=== PATIENT | male | born 1975 | race Caucasian/White ===

== ENCOUNTER 2021-09-03 19:00 | Emergency (ER) | payer BC, OTHER ==
[~2021-09-03] VITALS: Ht 172.7 cm; Wt 81.6 kg
[2021-09-03] MEDS ORDERED: LIDOCAINE HCL 2% 20 ML VIAL IJ ONE (19:30)
--- NOTE | 2021-09-03 20:02 | NUR ---
Patient discharged to home in stable condition. Written and verbal after care instructions given. Patient verbalizes understanding of instructions. Stressed follow up or return to ER for worsening s/s.
[2021-09-03 20:03] VITALS: BP 130/97
== END 2021-09-03 20:03 | disposition home or self-care (01) ==
LOC: ER 19:04
DX: S61.211A Laceration without foreign body of left index finger without damage to nail, initial encounter (principal); I10 Essential (primary) hypertension; I48.91 Unspecified atrial fibrillation; W26.0XXA Contact with knife, initial encounter; Y93.89 Activity, other specified; Y92.89 Other specified places as the place of occurrence of the external cause; Y99.8 Other external cause status
CPT/HCPCS: A4217; A4663

== ENCOUNTER 2021-09-15 19:10 | Outpatient (CLI) | payer BC, OTHER ==
[2021-09-15 22:54] LABS: CREATININE 1.2 mg/dL (0.6-1.3); POTASSIUM 4.2 mmol/L (3.5-5.1)
== END 2021-09-15 23:59 | disposition home or self-care (01) ==
LOC: LAB 19:10
PROVIDERS: ATTEND Internal Medicine
DX: R94.4 Abnormal results of kidney function studies (principal)
CPT/HCPCS: 36415

== ENCOUNTER 2021-10-02 03:32 | Emergency (ER) | payer BC, OTHER ==
[~2021-10-02] VITALS: Ht 175.3 cm; Wt 95.3 kg
--- NOTE | 2021-10-02 03:32 | NUR ---
Dr. William at bedside for MSE.
[2021-10-02] MEDS ORDERED: NITROGLYCERIN OINT 1 GM PACKET TP ONE ×2 (03:45→03:57)
[2021-10-02] MEDS ORDERED: ASPIRIN 81 MG TAB.CHEW PO ONE (03:45)
[2021-10-02 03:56] LABS: HEMATOCRIT 48.7 % (36.7-47.1); MEAN CORPUSCULAR HEMOGLOBIN 32.2 uug (23.8-33.4); MEAN CORPUSCULAR VOLUME 92.4 fL (73.0-96.2); PLATELET COUNT (AUTO) 356 K/uL (152-348)
[2021-10-02] MEDS ORDERED: ASPIRIN 81 MG TAB.CHEW ONE (03:57)
[2021-10-02] MEDS ORDERED: LABETALOL HCL 100 MG/20 ML VIAL IV ONE (04:15)
[2021-10-02] MEDS ORDERED: ACETAMINOPHEN ES 500 MG TABLET PO ONE (04:15)
[2021-10-02] MEDS ORDERED: ACETAMINOPHEN ES 500 MG TABLET ONE (04:18)
[2021-10-02 04:22] LABS: ALANINE AMINOTRANSFERASE 80 U/L (16-63); ALKALINE PHOSPHATASE 60 U/L (50-136); ASPARTATE AMINOTRANSFERASE 33 U/L (15-37); BILIRUBIN,DIRECT 0.1 mg/dL (0.0-0.2); BILIRUBIN,TOTAL 0.7 mg/dL (0.2-1.0); CARBON DIOXIDE 25 mmol/L (21-32); CHLORIDE 100 mmol/L (98-107); CREATININE 1.2 mg/dL (0.6-1.3); GLUCOSE 187 mg/dL (74-106); POTASSIUM 3.1 mmol/L (3.5-5.1); TOTAL PROTEIN, SERUM 7.9 g/dL (6.4-8.2); UREA NITROGEN, BLOOD 16 mg/dL (7-18)
[2021-10-02] MEDS ORDERED: LABETALOL HCL 100 MG/20 ML VIAL ONE (04:22)
[2021-10-02] MEDS ORDERED: POTASSIUM CHLORIDE 20 MEQ TAB.PRT.SR PO ONE (05:00)
[2021-10-02] MEDS ORDERED: POTASSIUM CHLORIDE 20 MEQ TAB.PRT.SR ONE (05:13)
--- NOTE | 2021-10-02 06:50 | NUR ---
Patient discharged to home in stable condition. Written and verbal after care instructions given. Patient verbalizes understanding of instructions. Stressed follow up or return to ER for worsening s/s. Patient out of ER with steady gait, no acute signs of distress, VSS, all belongings taken, IV site discontinued, provided with copies of lab, xray, and ekg results.
[2021-10-02 06:51] VITALS: BP 126/71
== END 2021-10-02 06:51 | disposition home or self-care (01) ==
LOC: ER 03:34
DX: R00.2 Palpitations (principal); R07.89 Other chest pain; R00.0 Tachycardia, unspecified; R94.31 Abnormal electrocardiogram [ECG] [EKG]; I10 Essential (primary) hypertension
CPT/HCPCS: 36415; 71045; 80048; 80076; 83735; 83880; 84484 ×3; 85025; 85379; 93005; 96374; 99285; J3490; A4663; A9150

== ENCOUNTER 2021-12-22 16:12 | Emergency (ER) | payer BC, OTHER ==
[~2021-12-22] VITALS: Ht 175.3 cm; Wt 95.3 kg
--- NOTE | 2021-12-22 17:06 | NUR ---
PT IS IN ROOM #1A. DR ATKINS EVALUATED THE PT.
[2021-12-22 17:53] VITALS: BP 141/79
--- NOTE | 2021-12-22 17:53 | NUR ---
PT WAS D/C'D TO HOME BY DR ATKINS. D/C INSTRUCTIONS GIVEN TO THE PT BY DR ATKINS.
== END 2021-12-22 18:26 | disposition home or self-care (01) ==
LOC: ER 16:13
DX: U07.1 COVID-19 (principal); J02.9 Acute pharyngitis, unspecified; Z87.01 Personal history of pneumonia (recurrent); I10 Essential (primary) hypertension
CPT/HCPCS: 36415; 86403; 87070; 87426; 99283; C9803; U0003; A4663

== ENCOUNTER 2022-02-17 00:50 | Outpatient (CLI) | payer BC, OTHER ==
[2022-02-17 01:38] LABS: MEAN CORPUSCULAR HEMOGLOBIN 32.2 uug (23.8-33.4); MEAN CORPUSCULAR VOLUME 91.3 fL (73.0-96.2); PLATELET COUNT (AUTO) 362 K/uL (152-348)
[2022-02-17 02:04] LABS: BILIRUBIN,TOTAL 0.5 mg/dL (0.2-1.0); CREATININE 1.1 mg/dL (0.6-1.3); POTASSIUM 3.7 mmol/L (3.5-5.1); TOTAL PROTEIN, SERUM 7.6 g/dL (6.4-8.2)
[2022-02-17 02:12] LABS: THYROID STIMULATING HORMONE 3.674 mIU/mL (0.358-3.740)
[2022-02-17 05:43] LABS: *BILIRUBIN,URIN NEGATIVE (NEGATIVE); *BLOOD, URINE NEGATIVE (NEGATIVE); *CLARITY,URINE CLEAR (CLEAR); *COLOR,URINE YELLOW (YELLOW); *KETONES,URINE NEGATIVE (NEGATIVE); *UROBILINOGEN,URINE 0.2 E.U./dl (NORMAL); LEUKOCYTE ESTERASE ,URINE NEGATIVE (NEGATIVE); NITRITE, URINE NEGATIVE (NEGATIVE); UGLUCOSE NEGATIVE (NEGATIVE)
[2022-02-18 07:06] LABS: TRIIODOTHYRONINE, FREE 3.6 pg/mL (2.0-4.4)
== END 2022-02-17 23:59 | disposition home or self-care (01) ==
LOC: LAB 00:50
DX: Z00.00 Encounter for general adult medical examination without abnormal findings (principal); E78.5 Hyperlipidemia, unspecified; I10 Essential (primary) hypertension
CPT/HCPCS: 36415; 82306; 84443; 84481; 85025; 87086